=== PATIENT | female | born 1960 | race Caucasian/White ===

== ENCOUNTER 2021-09-11 14:58 | Emergency (ER) | payer OTHER ==
[2021-09-11] MEDS ORDERED: KETOROLAC 30 MG/ML INJ ONE (15:37)
[2021-09-11] MEDS ORDERED: LORazepam 2 MG/ML VIAL ONE (15:37)
[2021-09-11] MEDS ORDERED: ONDANSETRON 4 MG/2 ML VIAL ONE (15:37)
[2021-09-11] MEDS ORDERED: NA CHLORIDE 0.9% 1,000 ML ONE (15:37)
[2021-09-11 15:39] LABS: Absolute Lymphocytes (CBC) 1.8 K/uL (0.7-4.9); Hematocrit 41.3 % (36.0-45.0); Lymphocytes % 20.7 % (15.3-44.8); MPV 7.8 fL (7.6-11.3); RBC Red Blood Cell Count 4.41 M/uL (3.86-4.86)
[2021-09-11 16:02] LABS: ALT/SGPT 43 U/L (12-78); AST/SGOT 26 U/L (15-37); Albumin 3.9 g/dL (3.4-5.0); Alkaline Phosphatase 62 U/L (45-117); BUN Blood Urea Nitrogen 14 mg/dL (7-18); Bicarbonate 27 mmol/L (21-32); Bilirubin Direct < 0.1 mg/dL (0-0.2); Bilirubin Total 0.3 mg/dL (0.2-1.0); Glucose Level 163 mg/dL (74-106); Lipase 84 U/L (73-393); Magnesium 1.9 mg/dL (1.8-2.4); NT PRO-BNP 46 pg/mL (<125); Potassium 4.5 mmol/L (3.5-5.1); Protein, Total 7.7 g/dL (6.4-8.2); Sodium Level 137 mmol/L (136-145)
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
--- NOTE | 2021-09-11 17:20 | RAD REPORT ---
EXAM DESCRIPTION: RAD - Knee Left 2 View - 09/11/2021 5:09 pm CLINICAL HISTORY: Left knee pain FINDINGS: No fracture or dislocation is seen. If patient continues have symptoms to suggest an occul t fracture, ligamentous or meniscal injury then MRI would be recommended Limited two view series obtained
[2021-09-11] MEDS ORDERED: DIAZEPAM 5 MG TABLET ONE (18:02)
[2021-09-11] MEDS ORDERED: MORPHINE 4 MG/ML SYR ONE (18:03)
[2021-09-11] MEDS ORDERED: ONDANSETRON 4 MG (ODT) TAB ONE (18:06)
[2021-09-11 19:46] VITALS: TEMP 98.4
[2021-09-11 19:49] VITALS: BP 132/55; O2SAT 97
--- NOTE | 2021-09-12 07:24 | EKG ---
Test Date: 2021-09-11 Test Time: 15:29:15 Paper Cone Maker: CHICA MEASUREMENT RESULTS: Intervals: Rate: 79 VT: 158 QRSD: 78 QT: 410 QTc: 470 [place]: P: 76 VT: 158 QRS: 63 T: 68 INTERPRETIVE STATEMENTS: Normal sinus rhythm Normal ECG No previous ECG available for comparison Electronically Signed On 09-12-21 07:22:37 LITHOGRAPHER APPRENTICE by Zackary Rain
== END 2021-09-11 18:34 | disposition home or self-care (01) ==
LOC: ER 14:58
DX: S16.1XXA Strain of muscle, fascia and tendon at neck level, initial encounter (principal); S80.02XA Contusion of left knee, initial encounter; S80.01XA Contusion of right knee, initial encounter; V49.40XA Driver injured in collision with unspecified motor vehicles in traffic accident, initial encounter; E11.9 Type 2 diabetes mellitus without complications; E03.9 Hypothyroidism, unspecified
CPT/HCPCS: 96361; 93005; 85025; 80048; 36415; 83735; 80076; 84484; 83690; 83880; 70450; 72125; 71260; 74177; 71045; 73560 ×2; 96375; 96372; 96374; 99284; Q9967; J7030; 87086; 87088; J2405